=== PATIENT | female | born 1970 | race Caucasian/White ===

== ENCOUNTER 2021-09-16 02:14 | Inpatient (IN) | payer OTHER ==
[~2021-09-16] VITALS: Ht 177.8 cm; Wt 149.7 kg
--- NOTE | ~2021-09-16 | HC ---
[facility] [place] [address] CONSULTATION Name: KHOA WEISS Room #: 216-P [facility] IN .R.#: [id number] Admission: 09/16/21 Attend Phys: Juan Diego Bowie MD Discharge: Date of : 74 Report #: [id number] THIS REPORT FOR: cc: FAM - Family physician unknown FAM - Family physician unknown Earnest Harding MD ~ DATE OF SERVICE: 09/19/2021 HISTORY OF PRESENT ILLNESS: The patient is a 51-year-old female, morbidly obese, admitted with mental status changes, toxic metabolic encephalopathy as well as a recent left middle cerebral artery stroke, thought to be at least a few days old per Neurology. She was noted to have acute on chronic respiratory failure, UTI, severe obstructive sleep apnea. She also was diagnosed with a new pulmonary embolism. She is thought to have sepsis from the UTI/pneumonia. We are seeing her in Rehabilitation Medicine consultation. PAST MEDICAL HISTORY: Includes morbid obesity, BMI 59. She does have a history of COPD and was on oxygen 2 liters nasal prong O2 premorbidly, severe obstructive sleep apnea. PAST MEDICAL HISTORY: COVID-19. She has a history of CHF. HABITS: Tobacco history, [id number]-[id number] history. MEDICATIONS: Please see the full medication listing. SOCIAL HISTORY: Lives in a house with her son, her sister and her fiance. The fiance and son both work. The sister is at home and could assist. One floor house, no steps. The patient used a walker premorbidly. REVIEW OF SYSTEMS: No current complaints of chest pain, shortness of breath or abdominal discomfort. PHYSICAL EXAMINATION: GENERAL: A 51-year-old morbidly obese white female in no obvious distress. VITAL SIGNS: Last recorded temperature 98.4, pulse 84, respirations 19, blood pressure 102/60. She is 340 pounds. Her height apparently is 5 feet 10 inches. She is on nasal prong O2, currently 8 liters. NEUROLOGIC: Facies appeared symmetric. She follows basic 1-step commands. There is a definite latency to her responses. I would grade her strength at 3+ to 4-/5, right upper and right lower extremity, more of a grade 4- to 4/5 left upper and left lower extremity. No focal calf swelling. Tone appeared to be intact. I could detect any obvious abnormality with visual field evaluation. ASSESSMENT: A 51-year-old white female with the following problem list: 1. Left middle cerebral artery cerebrovascular accident. [facility] [address] [place] [address] CONSULTATION Name: KHOA WEISS Room #: 216-P [facility] IN [facility]#: [id number] Admission: 09/16/21 Attend Phys: Juan Diego Bowie MD Discharge: Date of : 74 Report #: [id number] 2. Toxic metabolic encephalopathy. 3. Acute on chronic respiratory failure. 4. Pulmonary embolism. 5. Sepsis from urinary tract infection/pneumonia. 6. Morbid obesity, BMI 59. 7. History of tobacco abuse. PLAN: Therapy evaluations are underway. She certainly may benefit from at least a short acute in-hospital inpatient rehabilitation stay. She definitely meets diagnostic criteria and we will be further assessing her current function. She is on a lot more oxygen right now than she was premorbidly. We will be glad to follow along with you regarding her rehab therapy needs. By: [id number] Earnest Harding MD /nt
--- NOTE | ~2021-09-16 | EMS ---
[facility] [address] [place] [address] EMS Patient Care Report Name: CARI WEISS Room #: REG MICHAELA Mobley#: [id number] Admission: 09/16/21 Attend Phys: Discharge: Date of : 74 Report #: [id number] THIS REPORT FOR: //name// Report Transmitted: 09/16/2021 02:29 EMS Care Summary [place], [place]/[facility] Incident [id number] @ 09/16/2021 01:37 Incident Location [address] [place] [address] Patient KHOA WEISS Female, 51 Years 1970 Patient Address [address] [place] [address] Patient History Chronic Obstructive Pulmonary Disease (COPD),Sleep Apnea, Chief Complaint decreased LOC Disposition Transported No Lights/[place] Dispatch Reason Breathing Problem Transported To [facility] Narrative pt fianc??? called 911 when he got home from work and could not awaken her. family state pt has been more lethargic lately and today has slept all day long. she has c/o "everything tasting burnt" lately. unk vaccination status. she was at [facility] a wk ago for tx of an infected toe. pt is found seated on side of bed. she is extremely lethargic and her color is dusky in appearance. pt RA 02 sat is 62%. pt has congested cough and fever 99.6 pt to be eval at [facility]. after 02 admin pt becomes more alert, 02 sat 96% on NRB. pt is able to ambulate w/ cane to front room/cot, pt to unit, tx as listed in flow chart and [facility] [address] [place] [address] EMS Patient Care Report Name: CARI WEISS Room #: REG Leandra#: [id number] Admission: 09/16/21 Attend Phys: Discharge: Date of : 74 Report #: [id number] transport non emergency. pt 02 changed to NC and pt able to maintain 02 sat on 6L. Mask applied. on arrival, report given to staff, rm 9. Initial Vitals @01:46P: 108,R: 18,BP: 109/62,Pain: 0/10,GCS: 9,Temp: 99.6F,Glucose: 109,SpO2: 62,Revised Trauma: 11, @02:08P: 100,R: 20,BP: 110/60,GCS: 13,SpO2: 94,Revised Trauma: 12, Assessments @01:45MENTAL:Other,Person Oriented,SKIN:Hot,Other,HEENT:Eyes: Left Pupil: 4-mm,Eyes: Right Pupil: 4-mm,Head/Face: No Abnormalities,LUNG SOUNDS:General: Other,ABDOMEN:General: Other,PELVIS//GI:EXTREMITIES:PULSE:Radial: 2+ Normal,NEURO:Other,@01:55MENTAL:Confused,Other,Person Oriented,SKIN:Hot,Other,HEENT:LUNG SOUNDS:ABDOMEN:PELVIS//GI:EXTREMITIES:PULSE:NEURO: Impression Altered Mental Status Procedures @01:45 ALS Assessment Response: Unchanged @01:52 Stretcher Response: Unchanged @01:59 3-Lead ECG Response: Unchanged @02:00 IV Therapy - Saline Lock 10cc (20 ga) Site: Hand-Right Response: UnchangedSucceeded @01:46 Oxygen FlowRate: 15 Device: Non Re-breather Mask (NRB) Response: ImprovedSucceeded @02:05 Oxygen FlowRate: 6 Device: Nasal Cannula (NC) Response: UnchangedSucceeded Timeline 01:35,Call Received 01:35,Dispatch Notified 01:37,Dispatched 01:37,En Route 01:44,On Scene 01:45,At Patient 01:45,ALS Assessment,Response: Unchanged 01:46,BP: 109/62 M,PULSE: 108,RR: 18 R,SPO2: 62 Ox,ETCO2: ,B,PAIN: 0,GCS: 9, 01:46,Oxygen FlowRate: 15 Device: Non Re-breather Mask (NRB) Response: ImprovedSucceeded, 01:52,Stretcher,Response: Unchanged 01:59,3-Lead ECG,Response: Unchanged 02:00,IV Therapy - Saline Lock 10cc 20 ga Site: Hand-Right,Response: [facility] [address] [place] [address] EMS Patient Care Report Name: CARI WEISS Room #: ADRIENNE Mobley#: [id number] Admission: 09/16/21 Attend Phys: Discharge: Date of : 74 Report #: [id number] UnchangedSucceeded, 02:02,Depart Scene 02:05,Oxygen FlowRate: 6 Device: Nasal Cannula (NC) Response: UnchangedSucceeded, 02:08,BP: 110/60 M,PULSE: 100,RR: 20 R,SPO2: 94 Ox,ETCO2: ,BG: ,PAIN: ,GCS: 13, 02:10,At Destination 02:30,Call Closed Disclaimer v1.1 Copyright 2020 [employer] This EMS Care Summary contains data elements from the applicable legal record (which may be displayed differently). It is designed to provide pertinent information for the following purposes: continuity of care, clinical quality, and state data reporting. The complete legal record is available to ED staff and administrators of the receiving hospital in [facility]'s Patient Tracker. All data is provided "as is."
[2021-09-16 02:16] VITALS: BP 127/86
[2021-09-16 02:29] LABS: HCO3 37.3 mmol/L (22.0-26.0); PCO2 70.3 mmHg (35.0-45.0); PO2 88.6 mmHg (80.0-100.0); pH 7.343 (7.360-7.450)
[2021-09-16 03:06] LABS: ABSOLUTE NEUTROPHILS 4.8 thou/uL (1.4-8.2); BASOPHILS 0.3 % (0.0-2.0); EOSINOPHILS 0.1 % (0.0-3.0); HEMATOCRIT 51.6 % (37.0-47.0); HEMOGLOBIN 16.3 gm/dL (12.0-15.0); LYMPHOCYTES 15.4 % (24.0-44.0); MCH 30.6 pg (26.0-34.0); MCHC 31.6 g/dL (28.0-37.0); MCV 97.1 fL (80.0-100.0); MONOCYTES 5.5 % (1.0-8.0); PLATELET COUNT 167 thou/uL (150-400); POLYS 78.7 % (36.0-66.0); RBC 5.32 mil/uL (4.20-5.00); WBC 6.1 thou/uL (4.0-11.0)
[2021-09-16 03:07] LABS: ANION GAP 3 mmol/L (7-16); BUN 13 mg/dL (7-18); CHLORIDE 101 mmol/L (98-107); CO2 37 mmol/L (21-32); GLUCOSE 116 mg/dL (74-106); POTASSIUM 4.8 mmol/L (3.5-5.1); SODIUM 141 mmol/L (136-145)
[2021-09-16 03:11] LABS: APTT 24.4 Seconds (24.5-32.8); D-DIMER 1.04 ug/mLFEU (0.19-0.50); INR 1.09; PROTIME 11.8 Seconds (10.5-12.1)
[2021-09-16 03:17] LABS: ALBUMIN 3.3 g/dL (3.4-5.0); SALICYLATE 4.7 mg/dL (2.8-20.0); SGOT 21 U/L (15-37); SGPT 22 U/L (14-59); TOTAL BILIRUBIN 1.6 mg/dL (0.2-1.0); TOTAL PROTEIN 6.2 g/dL (6.4-8.2)
[2021-09-16 03:18] LABS: URINE BILIRUBIN 1+ (Negative); URINE BLOOD 1+ (Negative); URINE CLARITY CLOUDY; URINE COLOR YELLOW; URINE GLUCOSE-RANDOM* NEGATIVE (Negative); URINE KETONES NEGATIVE (Negative); URINE PROTEIN (DIPSTICK) TRACE (Negative); URINE SPECIFIC GRAVITY >= 1.030 (1.005-1.035)
[2021-09-16 03:24] LABS: AMP/METHAMP Negative (Negative); BARBITURATES Negative (Negative); BENZODIAZEPINES Negative (Negative); COCAINE Negative (Negative); METHADONE Negative (Negative); OPIATES Negative (Negative); PCP Negative (Negative); URINE LEUKOCYTES-REFLEX 1+ (Negative); URINE NITRITE-REFLEX POSITIVE (Negative)
[2021-09-16 03:27] LABS: SQUAMOUS 4-10 Moderate /LPF (0-3)
[2021-09-16 03:28] LABS: CRYSTALS None Seen /LPF (None Seen); HYALINE CASTS 4-10 Moderate /LPF (None Seen); MUCUS 4-6 Moderate strn/LPF (None Seen); URINE RBC 3-10 Few /HPF (NONE SEEN); URINE WBC-REFLEX 6-15 Few /HPF (0-5)
--- NOTE | 2021-09-16 07:08 | EKG ---
[place] [address] [facility] [employer] [place] [address] ELECTROCARDIOGRAM REPORT Name: KHOA WEISS Room #: 170-9 ADM IN M.R.#: [id number] Admission: 09/16/21 Attend Phys: Juan Diego Bowie MD Discharge: Date of : 74 Report #: [id number] [facility] ED Test Date: 2021-09-16 Test Time: 02:25:58 Pat Name: KHOA WEISS Department: Room: 170 Gender: F Software Analyst: kuldip oscar : 1970 Requested By: Trevon Mtz Order Number: [id number] MD: Arturo Reynolds Measurements Intervals Dennis Rate: 104 P: 50 MA: 139 QRS: 85 QRSD: 81 T: 47 QT: 321 QTc: 423 Interpretive Statements Sinus tachycardia Multiform ventricular premature complexes Probable left atrial enlargement Low voltage, precordial leads No previous ECG available for comparison Electronically Signed On 09-16-2021 7:07:54 CDT by Arturo Reynolds [email or web address] <ELECTRONICALLY SIGNED> By: Arturo Reynolds MD, [facility] 09/16/21706 4 0225 Arturo Reynolds MD, FACC /EPI
--- NOTE | 2021-09-16 11:30 | NUR ---
VAT CONSULTED FOR CVAD, R IJ TOO SMALL, LIJ WIDELY PATENET WITH USG. 6FR TL JACC 25CM INSERTED TO 4CM EXTERNAL. GAUZE AND PRESSURE AT INSERTION SITE FOR BLEEDING. PT TOLERATED WELL. STAT CXR ORDERED
--- NOTE | 2021-09-16 11:33 | NUR ---
JANKI PLACED STAT CXR ORDERED
[2021-09-16 12:28] LABS: INR 1.16; PROTIME 12.6 Seconds (10.5-12.1)
--- NOTE | 2021-09-16 12:31 | NUR ---
CXR LIJ TOO DEEP, PULLED BACK FEW CM'S. 2ND CXR ORDERED. EXTERNAL NOW 6CM
[2021-09-16 13:25] LABS: HCO3 34.7 mmol/L (22.0-26.0); PCO2 77.7 mmHg (35.0-45.0); pH 7.268 (7.360-7.450); sO2 94.6 % (92.0-98.0)
--- NOTE | 2021-09-16 13:30 | NUR ---
CXR CONFIRMATED LIJ AT [facility], RELEASED FOR IMMEDIATE USE TO SUNIL BOOTH
[2021-09-16 15:22] LABS: BE(vivo) 2.4 mmol/L (-2 to +3); sO2 91.5 % (92.0-98.0)
[2021-09-16 15:23] LABS: PCO2 68.9 mmHg (35.0-45.0); pH 7.285 (7.360-7.450)
[2021-09-16 23:06] LABS: GLYCOHEMOGLOBIN (HGB A1C) 6.5 % (4.8-5.6)
[2021-09-17 04:48] LABS: HEMATOCRIT 51.9 % (37.0-47.0); HEMOGLOBIN 16.2 gm/dL (12.0-15.0); MCHC 31.3 g/dL (28.0-37.0); MCV 96.1 fL (80.0-100.0); RBC 5.4 mil/uL (4.20-5.00); RDW 18.8 % (10.5-14.5)
[2021-09-17 04:56] LABS: CALCIUM 8.5 mg/dL (8.5-10.1); CREATININE 0.9 mg/dL (0.6-1.0); POTASSIUM 4.1 mmol/L (3.5-5.1)
[2021-09-17 05:33] LABS: CHOLESTEROL 103 mg/dL (<200); HDL CHOLESTEROL 24 mg/dL (>40); LDL CHOLESTEROL 55 mg/dL (<100); SERUM ASSESSMENT Clear; TC:HDL 4.3 Ratio (Not establshd); TRIGLYCERIDE 122 mg/dL (<150); VLDL 24 mg/dL (<40)
[2021-09-17 08:00] VITALS: BP 116/60
[2021-09-17 14:00] VITALS: BP 137/72
--- NOTE | 2021-09-17 15:03 | NUR ---
TOOK OVER CARE FROM LEOBARDO BARBER AT THIS TIME
[2021-09-17 17:35] VITALS: BP 102/64
[2021-09-17 18:00] VITALS: BP 133/68
[2021-09-17] MEDS ORDERED: FUROSEMIDE 40 M40 MG PO (19:03)
[2021-09-17] MEDS ORDERED: DICLOFENAC SODI75 MG PO (19:03)
[2021-09-17] MEDS ORDERED: ALBUTEROL2.5 MG/0.5 INH (19:04)
[2021-09-17 19:29] VITALS: BP 121/70
[2021-09-17 23:29] VITALS: BP 105/58
[2021-09-18 03:21] VITALS: BP 106/66
[2021-09-18 08:20] VITALS: BP 105/65
--- NOTE | 2021-09-18 08:21 | NUR ---
SLEPT PART OF SHIFT. REMAINS ORIENTED TO SELF. UNSURE OF THE REST. EXPRESSIVE APHASIA. TURNS SELF. CONTINUE TO ASSES CLOSELY.
[2021-09-18 11:15] VITALS: BP 127/69
[2021-09-18 13:26] LABS: BE(vivo) 8.8 mmol/L (-2 to +3); HCO3 38.7 mmol/L (22.0-26.0); PO2 72.9 mmHg (80.0-100.0); sO2 92.9 % (92.0-98.0)
[2021-09-18 13:30] LABS: PCO2 75.7 mmHg (35.0-45.0); pH 7.327 (7.360-7.450)
[2021-09-18 15:46] VITALS: BP 101/58
[2021-09-18 20:32] VITALS: BP 104/59
[2021-09-19 05:00] VITALS: BP 122/57
[2021-09-19 09:00] VITALS: BP 102/60
--- NOTE | 2021-09-19 11:59 | NUR ---
RD consult, pt with class III extreme obesity, BMI 49. Admitted with altered mental status, acute on chronic respiratory failure. Hx copd. +tobacco, covid. Pt with expressive aphasia, suspected CVA. No swallow issues and ST has recommended pt remain on regular diet. Eating 100% of meals. A1C 6.5 slightly elevated and BG 195. On steroids and pt with hx gestational diabetes so consider daily BG monitoring with possible need to change diet to carb control. Rehab consulted. Low nutrition risk
--- NOTE | 2021-09-19 12:02 | NUR ---
A1C 6.5, BG 195, and pt with hx gestational diabetes. On steroids as well. Consider daily BG monitoring.
[2021-09-19 12:37] VITALS: BP 134/78
[2021-09-19 13:14] LABS: HEMATOCRIT 50.9 % (37.0-47.0); HEMOGLOBIN 15.7 gm/dL (12.0-15.0); MCH 30.1 pg (26.0-34.0); MCHC 30.9 g/dL (28.0-37.0); MCV 97.4 fL (80.0-100.0); RBC 5.23 mil/uL (4.20-5.00); RDW 18.8 % (10.5-14.5); WBC 6.4 thou/uL (4.0-11.0)
[2021-09-19 13:30] LABS: ALBUMIN 3.2 g/dL (3.4-5.0); CALCIUM 8.5 mg/dL (8.5-10.1); MAGNESIUM 1.9 mg/dL (1.8-2.4); TOTAL BILIRUBIN 1.4 mg/dL (0.2-1.0); TOTAL PROTEIN 6.5 g/dL (6.4-8.2)
--- NOTE | 2021-09-19 15:12 | NUR ---
met with patient who admits with resp failure. Patient worked at [employer] in May but now unemployed. Patient resides at home with jareth and his son, sister and patients son who is 12 years old. Patient has oxygen at home usu at 2 liters via [employer]. She reports CPAP was to be delivered and has not been delivered. Casemgt to inquire. Discussed post acute care. Patient evaled by [facility]. Patient eager to dc home. She prefers home health care at home. casemgt following for dc planning.
--- NOTE | 2021-09-19 15:44 | NUR ---
TOOK OVER CARE FOR THIS PATIENT AT 0700. PATIENT RESTING IN BED. PATIENT CONTINUES TO HAVE HEPARIN DRIP;APTT MONITORED. PATIENT CONTINUES TO HAVE EXPRESSIVE APHASIA. ASSISTED PATIENT IN AMBULATING TO CHAIR WITH GAIT BELT AND OXYGEN. PATIENT STEADY ON HER FEET; NO ONESIDED WEAKNESS NOTED. ULTRASOUND OF CAROTIDS AND LOWER EXTREMITIES. PATIENT WEARING 6-8 L HIGHFLOW N/C; DENIES SHORTNESS OF BREATH; CONTINUOUS PULSE OXIMETRY IN PLACE AND RECEIVING BREATHING TREATMENTS PER RESPIRATORY THERAPY. FALL PRECAUTIONS IN PLACE AND CALL LIGHT WITHIN REACH. WILL CONTINUE TO MONITOR.
[2021-09-19 16:40] VITALS: BP 126/73
[2021-09-19 20:30] VITALS: BP 113/66
[2021-09-20 04:45] VITALS: BP 123/66
[2021-09-20 05:46] LABS: CALCIUM 8.5 mg/dL (8.5-10.1); CREATININE 0.9 mg/dL (0.6-1.0); MAGNESIUM 1.9 mg/dL (1.8-2.4); POTASSIUM 4.2 mmol/L (3.5-5.1)
[2021-09-20 05:48] LABS: HEMOGLOBIN 15.7 gm/dL (12.0-15.0); MCH 30.2 pg (26.0-34.0); MCHC 30.9 g/dL (28.0-37.0); RBC 5.21 mil/uL (4.20-5.00); RDW 18.3 % (10.5-14.5); WBC 4.8 thou/uL (4.0-11.0)
--- NOTE | 2021-09-20 06:16 | NUR ---
ASSUMED CARE OF PT AT 1900. PT IS 51F AOX4 RESPIRATORY FAILURE PT. PT RESTED THROUGHOUT THE NIGHT IN ROOM WITH NO COMPLAINTS, VSS. O2 SATS MAINTAINED ON 8L HIFLO NC AND BIPAP THROUGHOUT THE NIGHT. THERAPEUTIC X3 HEPARIN DRIP RUNNING AT 12U/KG/HR THROUGHOUT THE NIGHT WITH NO BREAKS, ORDERED APTT IN AM ROUTINE PER PROTOCOL CONFIRMED WITH SOL MARTELL. PT ABLE TO AMBULATE SBA BUT RESTED IN BED THROUGHOUT THE NIGHT. ARGUETA IN PLACE, DRAINING. SINUS RYTHM THROUGHOUT THE NIGHT, STRIP POSTED TO CHART. WILL CONTINUE TO MONITOR.
[2021-09-20 08:30] VITALS: BP 122/54
--- NOTE | 2021-09-20 11:35 | NUR ---
PATIENT IS AN APPROPRIATE CANDIDATE FOR ACUTE REHB AND HAS BEEN ACCEPTED FOR REHAB STAY PENDING AUTHORIZATION FROM PATIENT'S INSURANCE, [employer]. PATIENT'S INSURANCE CALLED AND CONFIRMATION RECEIVED THAT PATIENT HAS AN ACUTE INPATIENT REHAB BENEFIT ([facility] - REFERENCE NUMBER [id number]). [facility] IN NETWORK WITH [employer]. REQUEST FOR REHAB AUTHORIZATION SENT TO . WILL AWAIT RESPONSE.
[2021-09-20 13:07] VITALS: BP 109/52
[2021-09-20 17:34] VITALS: BP 114/68
--- NOTE | 2021-09-20 18:34 | NUR ---
PT AFEBRILE, POLYUREA, NO BM, GOOD APPETITE. CONTINUES TO BE ON 8-9L HIGH FLOW, AND BIPAP PRN AT NIGHT. HEAD CT DONE TODAY. HEPARIN GTT DC PER NEUROLOGY. NIH-0. PT AND SON HAVE BEEN THOUROUGHLY UPDATED AND EDUCATED ON PT CONDITION AND POC. PT SLOWLY PROGRESSING TOWARDS POC.
[2021-09-20 20:05] VITALS: BP 113/76
--- NOTE | 2021-09-21 03:06 | NUR ---
PT IS ALERT AND ORIENTED X4. LUNGS ARE DIMINISHED. ABDOMEN IS ROUND AND BOWEL SOUNDS HYPOACTIVE X4. 1 PLUS EDMA IN FEET BILATERAL. NIH SCALE IS 0. NO DEFICTS NOTED. ON BIPAP AT NIGHT AT 55 PERCENT SLEEPING WELL. ARGUETA TO DD WITH YELLOW URINE NOTED. OXYGEN SATURATION IS 93 PERCENT WITH SAT PROBE. DENEIS ANY COMPLAINTS OF PAIN NOTED. CALL LIGHT WITHIN REACH IF NEEDS ASSESSMENTS NOTED PER NURSING.
[2021-09-21 05:22] VITALS: BP 98/71
[2021-09-21 06:22] LABS: HEMATOCRIT 52.9 % (37.0-47.0); HEMOGLOBIN 16.4 gm/dL (12.0-15.0); MCH 29.8 pg (26.0-34.0); RBC 5.51 mil/uL (4.20-5.00); RDW 18.5 % (10.5-14.5); WBC 5.9 thou/uL (4.0-11.0)
[2021-09-21 06:31] LABS: CREATININE 0.9 mg/dL (0.6-1.0); MAGNESIUM 1.8 mg/dL (1.8-2.4); POTASSIUM 4.6 mmol/L (3.5-5.1)
[2021-09-21 08:00] VITALS: BP 121/69
--- NOTE | 2021-09-21 10:09 | HC ---
[facility] [place] [address] CONSULTATION Name: KHOA WEISS Room #: 216-P ADM IN M.R.#: [id number] Admission: 09/16/21 Attend Phys: Juan Diego Bowie MD Discharge: Date of : 74 Report #: [id number] THIS REPORT FOR: cc: FAM - Family physician unknown FAM - Family physician unknown Douglas Quintanilla MD ~ DATE OF SERVICE: 09/16/2021 HISTORY OF PRESENT ILLNESS: This is a 51-year-old female patient who is unable to provide any history. All the patient's records in the computer were reviewed. I talked to the nurse looking after this patient and the patient presented with a history of altered mental status. Complicated things have happened during her Emergency Room stay. She was found to have pretty high pCO2. CT angiogram demonstrated findings consistent with a pulmonary embolus. She was pretty significantly hypoxic when she came here to the Emergency Room with oxygen saturations in the 60s. Altered mental status is going on for a few days. She is supposed to be on supplemental oxygen, but she was not taking the supplemental oxygen. A CT scan of the head was done and subsequently CT angiogram of the head and neck was done. The CT angiogram of the head and neck does not show any evidence for any abrupt thought of indicating any embolus. There has been some question of left MCA infarct on the CT images. I reviewed those images. This patient does appear to have what looks like diffuse white matter ischemic changes, but whether ____ lateralized towards the left is not clear to me on those images. MRI was scheduled and MRI called back saying that they cannot do MRI when the patient is on BiPAP. REVIEW OF SYSTEMS: Pretty extensive in this patient. The patient has a history of COPD, but she does not take her supplemental oxygen. She is morbidly obese. She has a history of influenza and pneumonia. She has a history of CPAP, but she does not take the CPAP. History in the computer also indicate COVID-19 infection, gestational diabetes, congestive heart failure. I tried to find out anything about any eye, ENT, , musculoskeletal, constitutional, dermatological, hematological, psychiatric, throat, allergic symptom associated with present symptomatology, but I cannot get any history one way or another. PAST MEDICAL HISTORY: Positive for COPD. FAMILY HISTORY: Positive for heart disease. SOCIAL HISTORY: She has a history of smoking, but alcohol intake is not clear. Presently when she came in, it looks like she also had fever and pneumonia. PHYSICAL EXAMINATION: The patient's examination was limited. She is obtunded. She does not have any response of any kind. Nurses tell me when they turn her around, then she did have some response, but it was not purposeful. Cranial nerve examination II-XII was attempted, but it was impossible to carry out. [address] [address] CONSULTATION Name: KHOA WEISS Room #: 216-P [facility] IN M.R.#: [id number] Admission: 09/16/21 Attend Phys: Juan Diego Bowie MD Discharge: Date of : 74 Report #: [id number] Similarly, it looks like she can move all 4 extremities, but quantification of the strength is not possible. I tried to do the sensory exam and that was also not possible in this patient because she could not cooperate. I could not elicit reflexes. Cerebellar sign is not possible in fundus, she cannot cooperate. There is no meningeal sign. She does not appear to have massive edema. I cannot tell about hearing and vision. She is on BiPAP and cardiac examination clinically appear noncontributory. She did have a slight temperature when she came in. VITAL SIGNS: Blood pressure is 116/53, respirations 15, pulse is 100. LABORATORY DATA: White count is 6.1. GFR is 59. I reviewed the images and looks like she had a CT angiogram of the chest, head and neck. So she had a dye twice. IMPRESSION: This patient appeared to have a significant encephalopathy secondary to hypoxia. How long this hypoxia has been going on is not even clear. The findings of the stroke in the left middle cerebral artery is not definite and not very prominent. In any event, the time of onset was a few days ago for altered mental status and nothing can be done in that regard. She is already on heparin for pulmonary embolus. If and when she is able to swallow, then aspirin can continue, but otherwise she is on heparin, we can leave her on that. MRI has told us that an MRI cannot be done in this patient, and therefore, we have no other option except for hold until she stabilizes. I do not believe neurologically anything else can be done in this patient who has numerous medical problems. Thank you very much for this referral and if you have any questions, please feel free to contact me. I might mention that she got the contrast twice yesterday for 2 different angiograms and I will suggest hydrating this patient as much as possible, although that is going to carry some risk because of the patient's history of congestive heart failure. Ultimately, I will defer that to the hospitalist. Thank you very much for this referral. <ELECTRONICALLY SIGNED> By: Douglas Quintanilla MD 09/21/21 1009 [id number] MD marysol aCmpos
--- NOTE | 2021-09-21 10:09 | EEG ---
[facility] [place] [address] ELECTROENCEPHALOGRAM Name: KHOA WEISS Room #: 216-P ADM IN M.R.#: [id number] Admission: 09/16/21 Attend Phys: Juan Diego Bowie MD Discharge: Date of : 74 Report #: [id number] THIS REPORT FOR: //name// DATE OF SERVICE: 09/16/2021 This patient is being evaluated for altered mental status. EEG was done by placing the electrode by standard 10-20 system of electrode placement. Both referential and sequential montages were used for recording. Background activity in this patient's EEG is about 6-7 Hz and 30 microvolt. Photic stimulation was unremarkable. The activity was mostly monotonous activity without much variation. IMPRESSION: This is an abnormal EEG, which is typically seen with encephalopathy. However, the finding is nonspecific and can occur with dementia, effect of psychotropic medication, etc. Clinical correlation is recommended. Thank you very much for this referral. <ELECTRONICALLY SIGNED> By: Douglas Quintanilla MD 09/21/21 1009 [id number] Douglas Quintanilla MD /nt
--- NOTE | 2021-09-21 11:40 | NUR ---
Spoke with [facility] regarding CPAP. They have CPAP on order. They report alot of back orders due to CPAP recall. Updated patient. Hopefully she can transition to acute rehab and once discharge from acute rehab they will have CPAP ready for delivary
[2021-09-21 16:00] VITALS: BP 109/47
[2021-09-21 19:42] VITALS: BP 106/52
--- NOTE | 2021-09-22 03:58 | NUR ---
RECEIVED PATIENT AT 1900H.PATIENT IS ALERT AND ORIENTED X4.ON NASAL CANNULA AT 4LPM,PLACED ON BIPAP AROUND 2100 BY RT ON DUTY AT 45% FIO2.WITH ARGUETA CATHETER INTACT DRAINING YELLOWISH URINE.WITH LEFT JUGULAR CENTRAL LINE INTACT.ALL NEEDS ATTENDED.TO CONTINOUSLY MONITOR.
[2021-09-22 04:59] VITALS: BP 109/56
[2021-09-22 05:36] LABS: HEMATOCRIT 54.9 % (37.0-47.0); HEMOGLOBIN 17.4 gm/dL (12.0-15.0); MCH 30.1 pg (26.0-34.0); MCHC 31.7 g/dL (28.0-37.0); MCV 94.8 fL (80.0-100.0); RBC 5.79 mil/uL (4.20-5.00); RDW 18.8 % (10.5-14.5); WBC 6.4 thou/uL (4.0-11.0)
[2021-09-22 05:53] LABS: CALCIUM 9.2 mg/dL (8.5-10.1); CREATININE 0.9 mg/dL (0.6-1.0); POTASSIUM 4.5 mmol/L (3.5-5.1)
[2021-09-22 08:10] VITALS: BP 111/51
[2021-09-22 12:16] VITALS: BP 116/36
[2021-09-22] MEDS ORDERED: AUGMENTIN 875-1 EACH PO (12:47)
[2021-09-22] MEDS ORDERED: PULMICORT0.5 MG/21 INH (12:48)
[2021-09-22] MEDS ORDERED: PREDNISONE 10 M10 M1 PO (12:48)
[2021-09-22] MEDS ORDERED: IPRAT-ALBUT 0.5-3 ML INH (12:48)
--- NOTE | 2021-09-22 14:41 | NUR ---
patient accepted to [facility] acute rehab, patient agreeable with plan
[2021-09-22 15:55] VITALS: BP 105/55
[2021-09-22 19:20] VITALS: BP 127/79
--- NOTE | 2021-09-22 20:30 | NUR ---
PT IS AXOX4, PLEASANT; VSS, AFEBRILE, SR ON THE MONITOR. DENIES PAIN, SOME SOA WITH EXERTION. PT IS ON 4LNC, 6L WITH PT/OT/ACTIVITY. PT RECEIVED AUTH TO D/C TO [facility]. D/C ON HOLD FOR IVC PLACEMENT IN R FEMORAL. PT COMMUNICATED UNDERSTANDING AND AGREES. COMMUNICATED TO [facility]/REHAB. FALL PRECAUTIONS IN PLACE. NO CONCERNS AT THIS TIME.
--- NOTE | 2021-09-23 01:13 | NUR ---
PATIENTS CARES WHERE ASSUMED AT SHIFT CHANGE. PATIENT WAS ASSESSED AND MEDS WHERE GIVEN. PATIENT DONE WELL AND LOOKING FORWARD TO GO TO REHAB. BYPAP IN PLACE. PATIENT SLEEPING WELL AT THE TIME.
[2021-09-23 05:14] VITALS: BP 114/73
[2021-09-23 06:15] LABS: MCH 30.2 pg (26.0-34.0); MCHC 32.1 g/dL (28.0-37.0); MCV 94.1 fL (80.0-100.0); RBC 5.94 mil/uL (4.20-5.00); RDW 18.8 % (10.5-14.5); WBC 7.3 thou/uL (4.0-11.0)
[2021-09-23 06:33] LABS: CALCIUM 9.3 mg/dL (8.5-10.1); POTASSIUM 4.5 mmol/L (3.5-5.1)
[2021-09-23 08:00] VITALS: BP 111/60
[2021-09-23 11:30] VITALS: BP 109/53
[2021-09-23 15:55] VITALS: BP 129/81
--- NOTE | 2021-09-23 16:11 | NUR ---
REPORT GIVING TO EDYTA BOOTH ON [facility] REHAB.
--- NOTE | 2021-09-26 09:24 | 2DMMODE ---
[facility] Julito [place] [address] 2 D/M-MODE ECHOCARDIOGRAM Name: KHOA WEISS Room #: 216-P [facility] M.R.#: [id number] Admission: 09/16/21 Attend Phys: Earnest Harding MD Discharge: 09/23/21 Date of : 74 Report #: [id number] THIS REPORT FOR: cc: FAM - Family physician unknown FAM - Family physician unknown Arturo Reynolds MD [facility] ~ ADDENDUM APPROVED REPORT Study performed: 09/16/2021 13:44:00 EXAM: Comprehensive 2D, Doppler, and color-flow Echocardiogram Patient Location: ER Room #: 9 Status: routine BSA: 2.63 HR: 102 bpm BP: 107/45 mmHg Rhythm: Tachycardia Other Information Study Quality: Technically Difficult Technically limited study due to body habitus, lung disease, on bipad. Indications CVA/TIA Echo Enhancing Agent Indication: Rule out Shunt Agent(s) / Amount(s) Used: Agitated Saline 7 cc 2D Dimensions IVSd: 9.05 (7-11mm) LVOT Diam: 19.26 (18-24mm) LVDd: 55.00 mm PWd: 8.57 (7-11mm) Ascending Ao: 34.67 (22-36mm) LVDs: 39.81 (25-40mm) Left Atrium: 40.75 (27-40mm) Aortic Root: 33.63 mm IVC: 25.00 mm Aortic Valve AoV Peak Vincent.: 1.27 m/s AO Peak Gr.: 6.44 mmHg LVOT Max P.74 mmHg LVOT Max V: 0.97 m/s PARVIN Vmax: 2.22 cm2 [facility] [address] [place] [address] 2 D/M-MODE ECHOCARDIOGRAM Name: ABHISHEKKHOA Room #: 216-P [facility].#: [id number] Admission: 09/16/21 Attend Phys: Earnest Harding, Discharge: 09/23/21 Date of : 74 Report #: [id number] Mitral Valve E/A Ratio: 0.7 MV Decel. Time: 353.90 ms MV E Max Vincent.: 0.90 m/s MV A Vincent.: 1.23 m/s MV PHT: 102.63 ms IVRT: 124.57 ms Pulmonary Valve PV Peak Vincent.: 1.01 m/s PV Peak Gr.: 4.08 mmHg Pulmonary Vein P Vein S: 0.38 m/s P Vein A: 0.23 m/s P Vein D: 0.30 m/s P Vein A Dur.: 101.5 msec P Vein S/D Ratio: 1.27 Tricuspid Valve TR Peak Vincent.: 3.07 m/s TR Peak Gr.: 37.70 mmHg PA Pressure: 53.00 mmHg Left Ventricle The left ventricle is normal size. There is normal LV segmental wall motion. There is normal left ventricular wall thickness. The left ventricular systolic function is normal. The left ventricular ejection fraction is within the normal range. LVEF is 55%. This study is not technically sufficient to allow evaluation of the LV diastolic function. Right Ventricle Right ventricle is dilated. Right ventricular systolic function is grossly normal. Atria Left atrium is dilated. Right atrium is dilated. Aortic Valve Aortic valve is not well visualized. No aortic regurgitation is present. There is no aortic valvular stenosis. Mitral Valve The mitral valve is normal in structure. There is no mitral valve regurgitation noted. No evidence of mitral valve stenosis. Tricuspid Valve [facility] [address] [place] [address] 2 D/M-MODE ECHOCARDIOGRAM Name: KHOA WEISS Room #: 216-P [facility] .R.#: [id number] Admission: 09/16/21 Attend Phys: Earnest Harding, Discharge: 09/23/21 Date of : 74 Report #: [id number] The tricuspid valve is normal in structure. There is trace to mild tricuspid regurgitation. Estimated PAP 53 mmHg. There is moderate pulmonary hypertension. Pulmonic Valve The pulmonary valve is normal in structure. There is no pulmonic valvular regurgitation. Great Vessels The aortic root is normal in size. The inferior vena cava is dilated with no inspiratory collapse. Pericardium There is no pericardial effusion. <Conclusion> Normal left ventricle size/wall thickness Ejection fraction 55% Grade 1 diastolic dysfunction Right ventricle mildly dilated/normal systolic function Mild biatrial enlargement Normal aortic valve structure and function Mild mitral annular calcification Normal mitral valve function Mild tricuspid valve insufficiency Pulmonary systolic pressure estimated 53 mmHg No pericardial effusion Normal aortic root size Difficult study but no obvious right to left shunt detected by bubble study. <ELECTRONICALLY SIGNED> By: Arturo Reynolds MD, FACC 09/26/21923 3 3 Arturo Reynolds MD, FACC /INF
== END 2021-09-23 17:19 | DRG 871 ==
LOC: ER 02:14 → 2N 04:33 → EROBS 04:33 → 3W 08:21 → EROBS 08:30 → 2N 09-17 17:34
PROVIDERS: Emergency Medicine; Internal Medicine; Nurse Practitioner Family; ADMIT Hospitalist; ATTEND Physical Medicine & Rehabilitation
PROC: 02H633Z Insertion of Infusion Device into Right Atrium, Percutaneous Approach (ICD-10-PCS; principal; 2021-09-16)
PROC: 5A09357 Assistance with Respiratory Ventilation, Less than 24 Consecutive Hours, Continuous Positive Airway Pressure (ICD-10-PCS; principal; 2021-09-16)
PROC: 5A0935A Assistance with Respiratory Ventilation, Less than 24 Consecutive Hours, High Flow/Velocity Cannula (ICD-10-PCS; 2021-09-17)
PROC: 5A09357 Assistance with Respiratory Ventilation, Less than 24 Consecutive Hours, Continuous Positive Airway Pressure (ICD-10-PCS; 2021-09-18)
PROC: 5A09357 Assistance with Respiratory Ventilation, Less than 24 Consecutive Hours, Continuous Positive Airway Pressure (ICD-10-PCS; 2021-09-19)
PROC: 5A0935A Assistance with Respiratory Ventilation, Less than 24 Consecutive Hours, High Flow/Velocity Cannula (ICD-10-PCS; 2021-09-19)
PROC: 5A09357 Assistance with Respiratory Ventilation, Less than 24 Consecutive Hours, Continuous Positive Airway Pressure (ICD-10-PCS; 2021-09-20)
PROC: 5A0935A Assistance with Respiratory Ventilation, Less than 24 Consecutive Hours, High Flow/Velocity Cannula (ICD-10-PCS; 2021-09-20)
PROC: 5A09357 Assistance with Respiratory Ventilation, Less than 24 Consecutive Hours, Continuous Positive Airway Pressure (ICD-10-PCS; 2021-09-21)
PROC: 5A09357 Assistance with Respiratory Ventilation, Less than 24 Consecutive Hours, Continuous Positive Airway Pressure (ICD-10-PCS; 2021-09-22)
PROC: 06H03DZ Insertion of Intraluminal Device into Inferior Vena Cava, Percutaneous Approach (ICD-10-PCS; 2021-09-22)
PROC: 5A09357 Assistance with Respiratory Ventilation, Less than 24 Consecutive Hours, Continuous Positive Airway Pressure (ICD-10-PCS; 2021-09-23)
DX: A41.9 Sepsis, unspecified organism (principal); G92.8 Other toxic encephalopathy; J96.21 Acute and chronic respiratory failure with hypoxia; I26.99 Other pulmonary embolism without acute cor pulmonale; J96.22 Acute and chronic respiratory failure with hypercapnia; R65.21 Severe sepsis with septic shock; I63.9 Cerebral infarction, unspecified; I61.9 Nontraumatic intracerebral hemorrhage, unspecified; J18.9 Pneumonia, unspecified organism; N30.01 Acute cystitis with hematuria; J44.1 Chronic obstructive pulmonary disease with (acute) exacerbation; J44.0 Chronic obstructive pulmonary disease with (acute) lower respiratory infection; Z68.43 Body mass index [BMI] 50.0-59.9, adult; D59.9 Acquired hemolytic anemia, unspecified; K59.00 Constipation, unspecified; Z20.822 Contact with and (suspected) exposure to COVID-19; I50.9 Heart failure, unspecified; T58.94XA Toxic effect of carbon monoxide from unspecified source, undetermined, initial encounter; E66.01 Morbid (severe) obesity due to excess calories; G47.33 Obstructive sleep apnea (adult) (pediatric); Z82.49 Family history of ischemic heart disease and other diseases of the circulatory system; Z83.3 Family history of diabetes mellitus; Z80.1 Family history of malignant neoplasm of trachea, bronchus and lung; Z80.3 Family history of malignant neoplasm of breast; Z83.6 Family history of other diseases of the respiratory system; Z87.891 Personal history of nicotine dependence; Y92.89 Other specified places as the place of occurrence of the external cause
CPT/HCPCS: 10081